=== PATIENT | female | born 2000 | race Caucasian/White ===

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

== ENCOUNTER 2023-07-22 11:19 | Emergency (ER) | payer OTHER ==
[~2023-07-22] VITALS: Ht 160 cm; Wt 63.5 kg
[2023-07-22 11:48] VITALS: BP 126/84; PULSE 98; RESP 18; TEMP 98.1; O2SAT 97
[2023-07-22 13:34] LABS: FLU A ANTIGEN negative (NEGATIVE); FLU B ANTIGEN negative (NEGATIVE)
[2023-07-22] MEDS ORDERED: IBUP-2213 PO (13:36)
[2023-07-22] MEDS ORDERED: PROM118S5 PO (13:36)
== END 2023-07-22 13:44 | disposition home or self-care (01) ==
LOC: MED 11:19
DX: U07.1 COVID-19 (principal); Z79.899 Other long term (current) drug therapy
CPT/HCPCS: 99283

== ENCOUNTER 2023-07-26 06:44 | Emergency (ER) | payer OTHER ==
[~2023-07-26] VITALS: Ht 160 cm; Wt 63.5 kg
[~2023-07-26 06:44] MED LIST: IBUP-2213 PO; PROM118S5 PO
[2023-07-26 06:45] VITALS: BP 98/55; PULSE 94; RESP 16; TEMP 97.4; O2SAT 98
[2023-07-26 07:19] LABS: FLU A ANTIGEN negative (NEGATIVE); FLU B ANTIGEN NEGATIVE (NEGATIVE)
[2023-07-26 07:37] VITALS: BP 98/55; PULSE 94; RESP 16; TEMP 97.4; O2SAT 98
== END 2023-07-26 09:30 | disposition home or self-care (01) ==
LOC: MED 06:44
DX: R09.81 Nasal congestion (principal); Z20.822 Contact with and (suspected) exposure to COVID-19; Z79.899 Other long term (current) drug therapy
CPT/HCPCS: 99283